=== PATIENT | female | born 1960 | race African-American/Black ===

== ENCOUNTER 2023-11-05 09:20 | Outpatient (CLI) | payer MEDICARE, SELFPAY ==
--- NOTE | ~2023-11-05 | XR_ITS ---
AP view of the pelvis and AP and lateral views of the bilateral hips Clinical history: Pain Findings: No acute fracture or dislocation is seen. Osseous alignment is anatomic. Bilateral hip and SI joint spaces are preserved. Soft tissues are unremarkable. Impression: No significant abnormality is seen. Reviewed, dictated and finalized at location . Impression: No significant abnormality is seen.
[2023-11-05 10:27] LABS: Basophils Absolute Auto 0.1 K/mm3 (0.0-0.1); Basophils Percent Auto 1.6 % (0.2-1.2); Eosinophils Absolute Auto 0.2 K/mm3 (0-0.3); Eosinophils Percent Auto 4.5 % (0-4.4); Hematocrit 37.1 % (37.0-47.0); Hemoglobin 12.1 g/dL (12.0-15.0); Immature Granulocyte Absolute 0.01 K/mm3 (0.00-0.031); Immature Granulocyte Percent A 0.2 % (0-0.5); Lymphocytes Absolute Auto 1.29 K/mm3 (0.9-3.2); Lymphocytes Percent Auto 28.9 % (18.3-44.2); Mean Corpuscular HGB Conc 32.6 g/dl (32-36); Mean Corpuscular Hemoglobin 28.7 pg (26-34); Mean Corpuscular Volume 87.9 fl (80-100); Mean Platelet Volume 9.5 fl (7.4-10.4); Monocytes Absolute Auto 0.4 K/mm3 (0.1-0.6); Monocytes Percent Auto 8.7 % (2.6-8.5); Neutrophils Absolute Auto 2.5 K/mm3 (1.3-6.7); Neutrophils Percent Auto 56.1 % (45.5-73.1); Platelet Count Result 317 k/mm3 (150-375); Red Blood Count 4.22 M/mm3 (4.2-5.4); Red Cell Distribution Width 12.5 % (11.5-14.5); White Blood Count 4.5 K/mm3 (4.5-10.0)
[2023-11-05 10:38] LABS: Alanine Aminotransferase 18 U/L (6-35); Albumin Level 4.9 g/dL (3.5-5.1); Alkaline Phosphatase 70 U/L (38-126); Anion Gap 11 mmol/L (4-12); Aspartate Amino Transferase 20 U/L (14-36); Bilirubin,Total 0.6 mg/dL (0.2-1.3); Blood Urea Nitrogen 13 mg/dL (7-17); Calcium 10.2 mg/dL (8.4-10.2); Carbon Dioxide 22 mmol/L (22-30); Chloride 108 mmol/L (98-107); Cholesterol 165 mg/dL (0-200); Estimated Glomerular Filt Rate > 60; Glucose 154 mg/dL (65-110); HDL Direct 58 mg/dL; Potassium 4.3 mmol/L (3.4-5.0); Sodium 141 mmol/L (137-145); Triglycerides 115 mg/dL (<150)
[2023-11-05 10:50] LABS: LDL Cholesterol Direct 83 mg/dL
[2023-11-05 11:06] LABS: Thyroid Stimulating Hormone 0.607 uIU/mL (0.465-4.680)
[2023-11-05 12:33] LABS: MALB Creatinine Ratio 16.5 mg/g (0-30); Microalbumin Urine Random 24.1 mg/L (0-16.7)
[2023-11-05 12:46] LABS: Hemoglobin A1C 7.1 % (<5.7)
== END 2023-11-05 09:21 | disposition home or self-care (01) ==
PROVIDERS: PCP Internal Medicine; Visit Provider Internal Medicine
DX: M25.552 Pain in left hip (principal); M25.551 Pain in right hip; E53.8 Deficiency of other specified B group vitamins; E78.5 Hyperlipidemia, unspecified; G47.10 Hypersomnia, unspecified; Z13.29 Encounter for screening for other suspected endocrine disorder; I10 Essential (primary) hypertension; E11.9 Type 2 diabetes mellitus without complications
CPT/HCPCS: 36415; 73521; 80053; 80061; 82043; 82607; 83036; 84443; 85025

== ENCOUNTER 2024-03-15 14:40 | Outpatient (CLI) | payer MEDICARE, SELFPAY ==
--- NOTE | ~2024-03-15 | MM_ITS ---
EXAMINATION: MM screening yesica BI w channing HISTORY: Screening TECHNIQUE: Craniocaudal and mediolateral oblique 3-D tomosynthesis images were obtained and synthetic 2-D images were generated. CAD analysis was submitted and interpreted. COMPARISON: No prior studies for comparison. BREAST PARENCHYMAL COMPOSITION: Dense: The breasts are heterogeneously dense, which may obscure small masses FINDINGS: There is no evidence of suspicious mass, calcification, or architectural distortion to sugg est malignancy in either breast. There has been no suspicious interval change. IMPRESSION: 1. No mammographic evidence of malignancy. 2. Recommend routine screening mammography in one year. BI-RADS Category 1: Negative Reviewed, dictated and finalized at location B.
== END 2024-03-15 14:41 | disposition home or self-care (01) ==
PROVIDERS: PCP Internal Medicine; Visit Provider Internal Medicine
DX: Z12.31 Encounter for screening mammogram for malignant neoplasm of breast (principal)
CPT/HCPCS: 77063; 77067

== ENCOUNTER 2024-05-28 09:39 | Outpatient (CLI) | payer MEDICARE, SELFPAY ==
[2024-05-28 10:41] LABS: Alanine Aminotransferase 25 U/L (6-35); Albumin Level 4.6 g/dL (3.5-5.1); Alkaline Phosphatase 71 U/L (38-126); Anion Gap 7 mmol/L (4-12); Aspartate Amino Transferase 25 U/L (14-36); Bilirubin,Total 0.5 mg/dL (0.2-1.3); Blood Urea Nitrogen 9 mg/dL (7-17); Calcium 9.8 mg/dL (8.4-10.2); Carbon Dioxide 24 mmol/L (22-30); Chloride 109 mmol/L (98-107); Cholesterol 161 mg/dL (0-200); Estimated Glomerular Filt Rate > 60; Glucose 139 mg/dL (65-110); HDL Direct 55 mg/dL; Potassium 4.3 mmol/L (3.4-5.0); Sodium 140 mmol/L (137-145); Triglycerides 105 mg/dL (<150)
[2024-05-28 10:54] LABS: LDL Cholesterol Direct 64 mg/dL
[2024-05-28 11:11] LABS: Thyroid Stimulating Hormone 0.775 uIU/mL (0.465-4.680)
[2024-05-28 11:30] LABS: Hemoglobin A1C 7.1 % (<5.7)
--- OUTSIDE RECORDS SUMMARY | 2024-06-04 12:20 | XMS_ITS | Encounter Summary ---
Author Organization [facility] Address [address] [place] [id number] Care Team Providers Care Civil Preparedness Training Officer Name Role Phone Unavailable Primary Care Provider Unavailabl e Encounter Details Date Type Department Care Team (Late st Contact Info) Description 04/25/2020 Lab Requisition [facility] [address] [place] [address] [place] [id number] [address] [address] Social History Tobacco Use Types Packs/Day Years Used Date Smoking Tobacco: Never Assessed Comments Unknown Sex and Gender Information Value Date Recorded Sex Assigned at Not on file Legal Sex Female 11:09 AM EXTRACTION OPERATOR Gender Identity Not on file Sexual Orientation Not on file documented as of this encounter Plan of Treatment Not on file documented as of this encounter Procedures Procedure Name Priority Date/Time Associated Diagnosis Comments SARS-COV-2 PCR [facility] ONLY Routine 04/25/2020 11:15 AM EXTRACTION OPERATOR documented in this encounter Visit Diagnoses Not on filedocumented in this encounter
--- OUTSIDE RECORDS SUMMARY | 2024-06-04 12:20 | XMS_ITS | Encounter Summary ---
Author Organization [facility] Address [address] [place] [address] [place] [address] Care Team Providers Care Fuel Quality Tech Name Role Phone Nai Campbell Flor AGRICULTURAL AIRCRAFT PILOT-SALES ACCOUNT REPRESENTATIVE Primary Care Pro vider Reason for Visit * Radiology Services (Routine) - Closed Specialty Diagnoses / Procedures Referred By Austin campbell Referred To Contact Diagnoses Visit for screening mammogram Procedures MAMMO BILAT SCREENING Adrian Nai MARINA Ray-SALES ACCOUNT REPRESENTATIVE [address] [place] [address] Referral ID Status Reason Start Date Expiration Date Visits Re quested Visits Authorized [id number] Closed 12/26/2020 12/26/2021 1 1 Encounter Details Date Type Department Care Team (Latest Contact Info) Description 12/26/2020 9:08 AM CDT - 12/26/2020 11:59 PM T Hospital Encounter [facility] [address] [place] [address] Adrian Nai FlorMARINA castro-SALES ACCOUNT REPRESENTATIVE [address] [place], [place] [id number] Discharge Disposition: Home or Self Care Social History Tobacco Use Types Packs/Day Years Used Date Smoking Tobacco: Every Day Cigarettes 1 34 Sex and Gender Information Value Date Recorded Sex Assigned at Not on file Gender Identity Not on file Sexual Orientation Not on file documented as of this encounter Plan of Treatment Not on file documented as of this encounter Procedures Procedure Name Priority Date/Time Associated Diagnosis Comments MAMMO BILAT SCREENING Routine 12/26/2020 9:55 AM CDT Visit for screening mammogram documented in this encounter Results * MAMMO BILAT SCREENING (12/26/2020 9:55 AM CDT) Anatomical Region Laterality Modality Breast Bilateral Mammography 12/31/2020 8:43 AM CDT Impressions 12/31/2020 8:48 AM CDT No mammographic evidence of malignancy in either breast. ASSESSMENT: BIRADS Category 2: Benign finding(s). RECOMMENDATION: Bilateral screening mammogram in one year. Thank you for allowing us to participate in the care of your patient. [facility] utilizes [employer] as a reminder system to notify patients of their next recommended mammogram. *Reading Radiologist: Jenni Reddy on 12/31/2020 at 8:48 AM Narrative 12/31/2020 8:48 AM CDT EXAMINATION: Digital screening mammogram. Low-dose full-field digital breast tomosynthesis examination was performed with synthetic 2D images and 3D acquisitions. Computer assisted detection was utilized. DATE: 12/26/2020 9:08 AM PRIOR: Several priors, most recently ??2019 at [facility] now available BREAST PARENCHYMAL DENSITY: The breasts are heterogeneously dense, which may obscure small masses. FINDINGS: No suspicious masses, areas of architectural distortion or microcalcifications are evident on synthetic 2D mammogram or tomosynthesis images. There has been no significant interval change since the prior examination. Nai VALENCIA MAMMO ORD ERABLES documented in this encounter Visit Diagnoses Diagnosis Visit for screening mammogram Other screening mammogram documented in this encounter Care Teams Fuel Quality Tech Relationship Specialty Start Date End Date Nai Campbell APRN-CNP [address] [place], [place] [id number] PCP - General Nurse Practitioner 12/26/20 05/06/22 documented as of this encounter
--- OUTSIDE RECORDS SUMMARY | 2024-06-04 12:20 | XMS_ITS | Patient Health Summary ---
Author Organization [facility] Address [address] [place] [address] Care Team Providers Care Modeling Agent Name Role Phone Nai Oliver PA-C Primary Care Provider [phone]- [phone] Note from [facility],non-owned Affiliates and Associated Physician Practices is amultiple site organization consisting of ambulatory clinics and hospital sitesin [place], [place], [place] and [place]. This disclosure is being madepursuant to the Care Everywhere program and may not contain all information available regarding this patient. Last updated 18.[facility] Social History Tobacco Use Types Packs/Day Years Used Date Smoking Tobacco: Every Day Cigarettes 1 34 Sex and Gender Information Value Date Recorded Sex Assigned at Not on file Gender Identity Not on file Sexual Orientation Not on file Procedures * MAMMO BILAT SCREENING W HASEEB(Performed 05/07/2022) Performed for Encounter for screening mammogram for malignant neoplasm of breast * MAMMO BILAT SCREENING(Performed 12/26/2020) Performed for Visit for screening mammogram * CT LUNG SCREEN LOW DOSE(Performed 12/26/2020) Performed for Personal history of nicotine dependence Results * MAMMO BILAT SCREENING W HASEEB (05/07/2022 10:23 AM SVP RESEARCH AND STRATEGIC ANALYSIS) Anatomical Region Laterality Modality Breast Bilateral Mammography 05/07/2022 1:03 PM [facility] RESEARCH AND STRATEGIC ANALYSIS Impressions 05/07/2022 1:05 PM [facility] RESEARCH AND STRATEGIC ANALYSIS : There is no mammographic evidence of malignancy. OVERALL FINAL ASSESSMENT: BI-RADS Category 1: Negative. Annual screening mammography is recommended. > Interpreting Provider: Karoline Gerard MD on 05/07/2022 1:05 PM Narrative 05/07/2022 1:05 PM [facility]P RESEARCH AND STRATEGIC ANALYSIS EXAMINATION: BILATERAL DIGITAL SCREENING MAMMOGRAM AND BILATERAL BREAST TOMOSYNTHESIS HISTORY: Screening. COMPARISON: Serial examinations dating back to 2019. TECHNIQUE: ??BILATERAL digital breast tomosynthesis (DBT) and synthetic 2D digital mammogram images were obtained (bilateral craniocaudal and mediolateral oblique projections) including computer aided detection (CAD.) BREAST PARENCHYMAL COMPOSITION:Category C: The breasts are heterogeneously dense which may obscure small masses. MAMMOGRAM FINDINGS: There are no suspicious masses, calcifications, or areas of architectural distortion in either breast, and there has been no significant interval change. Nai Oliver PA-C MAMMO ORDERABLES * MAMMO BILAT SCREENING (12/26/2020 9:55 AM CDT) Anatomical Region Laterality Modality Breast Bilateral Mammography 12/31/2020 8:43 AM CDT Impressions 12/31/2020 8:48 AM CDT No mammographic evidence of malignancy in either breast. ASSESSMENT: BIRADS Category 2: Benign finding(s). RECOMMENDATION: Bilateral screening mammogram in one year. Thank you for allowing us to participate in the care of your patient. [facility] Breast Care utilizes [facility] as a reminder system to notify patients of their next recommended mammogram. *Reading Radiologist: Jenni Reddy on 12/31/2020 at 8:48 AM Narrative 12/31/2020 8:48 AM CDT EXAMINATION: Digital screening mammogram. Low-dose full-field digital breast tomosynthesis examination was performed with synthetic 2D images and 3D acquisitions. Computer assisted detection was utilized. DATE: 12/26/2020 9:08 AM PRIOR: Several priors, most recently ??2019 at [facility] now available BREAST PARENCHYMAL DENSITY: The breasts are heterogeneously dense, which may obscure small masses. FINDINGS: No suspicious masses, areas of architectural distortion or microcalcifications are evident on synthetic 2D mammogram or tomosynthesis images. There has been no significant interval change since the prior examination. Nai Campbell CLAIM TAKER-PHOTO TECHNOLOGIST MAMMO ORD ERABLES * CT LUNG SCREEN LOW DOSE (12/26/2020 8:10 AM CDT) Anatomical Region Laterality Modality Chest Computed Tomogra phy 12/26/2020 9:35 AM CDT Impressions 12/26/2020 9:37 AM CDT No pulmonary nodules. Lung RADS category 1, negative Continue annual screening with low-dose CT in 12 months. *Reading Radiologist: Yifan Brandt on 12/26/2020 at 9:37 AM Narrative 12/26/2020 9:[address] Lung Cancer Screening INDICATION: ??34 pack year smoking history TECHNIQUE: Thin section helical images were obtained through the chest using low-dose protocol. Sagittal and coronal reconstructions were performed. FINDINGS: No old studies are available for comparison purposes. There are degenerative changes of the spine. ?? The lungs are clear of infiltrate. ?? There is no pleural effusion. ?? There is no pneumothorax. There are no suspicious pulmonary nodules. ?? The central airways are normal in caliber. The thyroid gland is unremarkable. ?? There is no axillary adenopathy. There is no mediastinal adenopathy. ?? There is no hilar adenopathy. The aorta is normal in caliber with no evidence for aneurysm or dissection. ?? The heart is normal in size. Coronary artery calcification is noted. Procedure Note Yifan Brandt MD - 12/26/2020 CT Lung Cancer Screening INDICATION: 34 pack year smoking history TECHNIQUE: Thin section helical images were obtained through the chest using low-dose protocol. Sagittal and coronal reconstructions were performed. FINDINGS: No old studies are available for comparison purposes. There are degenerative changes of the spine. The lungs are clear of infiltrate. There is no pleural effusion. There is no pneumothorax. There are no suspicious pulmonary nodules. The central airways are normal in caliber. The thyroid gland is unremarkable. There is no axillary adenopathy. There is no mediastinal adenopathy. There is no hilar adenopathy. The aorta is normal in caliber with no evidence for aneurysm or dissection. The heart is normal in size. Coronary artery calcification is noted. IMPRESSION No pulmonary nodules. Lung RADS category 1, negative Continue annual screening with low-dose CT in 12 months. *Reading Radiologist: Yifan Brandt on 12/26/2020 at 9:37 AM Nai [place] CLAIM TAKER-PHOTO TECHNOLOGIST CT ORDERA BLES Care Teams Modeling Agent Relationship Specialty Start Date End Date Nai Oliver PA-C [address] [place] [phone] PCP - General Physician Executive Talent Acquisition Consultant 05/07/22
--- OUTSIDE RECORDS SUMMARY | 2024-06-04 12:20 | XMS_ITS | Encounter Summary ---
Author Organization [facility] Address [address] [place] [address] Care Team Providers Care Metrology Technician Name Role Phone Unavailable Primary Care Provider Unavailabl e Encounter Details Date Type Department Care Team (Late st Contact Info) Description 04/25/2020 12:00 PM CAPACITOR REPAIRER Rapid Evaluation [place] [facility] Public [facility] Community Testing [facility] [address] [place] [address] Social History Tobacco Use Types Packs/Day Years Used Date Smoking Tobacco: Never Assessed Comments Unknown Sex and Gender Information Value Date Recorded Sex Assigned at Not on file Legal Sex Female 11:09 AM CAPACITOR REPAIRER Gender Identity Not on file Sexual Orientation Not on file documented as of this encounter Plan of Treatment Not on file documented as of this encounter Visit Diagnoses Not on filedocumented in this encounter
--- OUTSIDE RECORDS SUMMARY | 2024-06-04 12:20 | XMS_ITS | Clinical Summary ---
Author Organization [facility] Address [address] [place] [address] Care Team Providers Care Bail Bondsman Name Role Phone Nai Oliver PA-C Primary Care Provider [phone]- [phone] Source Comments [facility],non-[facility] Affiliates and Associated Physician Practices is amultiple site organization consisting of ambulatory clinics and hospital sitesin [place], [place], [place] and [place]. This disclosure is being madepursuant to the Care Everywhere program and may not contain all information available regarding this patient. Last updated 18.[facility] [employer] Social History Tobacco Use Types Packs/Day Years Used Date Smoking Tobacco: Every Day Cigarettes 1 34 Sex and Gender Information Value Date Recorded Sex Assigned at Not on file Gender Identity Not on file Sexual Orientation Not on file Plan of Treatment Health Maintenance Due Date Last Done Comments BONE DENSITY TESTING 1960 COLOGUARD (AGES 45-75) - COLON CA SCREENING 1958 COLON MONITORING 1958 COLONOSCOPY - COLON CA SCREENING 1958 CT COLONOGRAPHY - COLON CA SCREENING 1958 Colorectal Cancer Screening 1958 FIT - COLON CA SCREENING 1958 FLEX SIG - COLON CA SCREENING 1958 LIPID TESTING 1958 PNEUMOCOCCAL VACCINE 65+ (1 of 2 - PCV) 1964 HEPATITIS C SCREENING 04/10/1976 DTAP/TDAP/TD VACCINES (1 - Tdap) 1977 ZOSTER VACCINE (1 of 2) 2008 LUNG CANCER SCREENING 12/26/2021 12/26/2020 DEPRESSION SCREENING 06/08/2023 COVID-19 VACCINE ( season) 2024 05/20/2021, 09/21/2020, 08/21/2020 INFLUENZA VACCINE (#1) 2024 , 04/12/2019, 04/20/2014, Additional history exists MAMMOGRAM 05/07/2024 05/07/2022, 12/26/2020 Respiratory Syncytial Virus (RSV) Vaccine Pt: or over 60 yrs (1 - 1-dose 75+ series) 2033 HEPATITIS B VACCINE Aged Out No longe r eligible based on patient's age to complete this topic HIB VACCINE Aged Out No longer eligi ble based on patient's age to complete this topic HPV VACCINE Aged Out No longer eligi ble based on patient's age to complete this topic MENINGOCOCCAL VACCINE Aged Out No raman darrell eligible based on patient's age to complete this topic Procedures Procedure Name Priority Date/Time Associated Diagnosis Comments MAMMO BILAT SCREENING W HASEEB Routine 05/07/2022 10:23 AM IBM WEBSPHERE COMMERCE DEVELOPER Encounter for screening mammogram for malignant neoplasm of breast CT LUNG SCREEN LOW DOSE Routine 12/26/2020 8:10 AM CDT Personal history of nicotine dependence from Last 3 Months or Most Recently Relevant to Health Maintenance Results * MAMMO BILAT SCREENING W HASEEB (05/07/2022 10:23 AM [employer] WEBSPHERE COMMERCE DEVELOPER) Anatomical Region Laterality Modality Breast Bilateral Mammography 05/07/2022 1:03 PM [employer] WEBSPHERE COMMERCE DEVELOPER Impressions 05/07/2022 1:05 PM [employer] WEBSPHERE COMMERCE DEVELOPER : There is no mammographic evidence of malignancy. OVERALL FINAL ASSESSMENT: BI-RADS Category 1: Negative. Annual screening mammography is recommended. > Interpreting Provider: Karoline Gerard MD on 05/07/2022 1:05 PM Narrative 05/07/2022 1:05 PM [employer] WEBSPHERE COMMERCE DEVELOPER EXAMINATION: BILATERAL DIGITAL SCREENING MAMMOGRAM AND BILATERAL BREAST TOMOSYNTHESIS HISTORY: Screening. COMPARISON: Serial examinations dating back to 2018. TECHNIQUE: ??BILATERAL digital breast tomosynthesis (DBT) and [...] change. Nai Oliver PA-C MAMMO ORDERABLES * CT LUNG SCREEN LOW DOSE (12/26/2020 [...] Yifan Brandt on 12/26/2020 at 9:37 AM [facility] STEAM PRESSER-INVESTIGATION CLERK CT ORDERA BLES from Last 3 Months or Most Recently Relevant to Health Maintenance Care Teams Bail Bondsman Relationship Specialty Start Date End Date Nai Oliver PA-C [address] [place] [address] PCP - General Physician Gravure Press Set Up Operator 05/07/22
--- OUTSIDE RECORDS SUMMARY | 2024-06-04 12:20 | XMS_ITS | Referral Summary ---
Author Organization [facility] Address [address] [place] [address] Care Team Providers Care Placement Assistant Name Role Phone Nai Oliver PA-C Primary Care Provider +1- [phone] Source Comments [facility],non-[facility] Affiliates and Associated Physician Practices is amultiple site organization consisting of ambulatory clinics and hospital sitesin [place], [place], [place] and [place]. This disclosure is being madepursuant to the Care Everywhere program and may not contain all information available regarding this patient. Last updated 18.[facility] [employer] Social History Tobacco Use Types Packs/Day Years Used Date Smoking Tobacco: Every Day Cigarettes 1 34 Sex and Gender Information Value Date Recorded Sex Assigned at Not on file Gender Identity Not on file Sexual Orientation Not on file Plan of Treatment Not on file Procedures Procedure Name Priority Date/Time Associated Diagnosis Comments MAMMO BILAT SCREENING W HASEEB Routine 05/07/2022 10:23 AM JEWEL SAWYER Encounter for screening mammogram for malignant neoplasm of breast CT LUNG SCREEN LOW DOSE Routine 12/26/2020 8:10 AM CDT Personal history of nicotine dependence from Last 3 Months or Most Recently Relevant to Health Maintenance Results * MAMMO BILAT SCREENING W HASEEB (05/07/2022 10:23 AM JEWEL SAWYER) Anatomical Region Laterality Modality Breast Bilateral Mammography 05/07/2022 1:03 PM JEWEL SAWYER Impressions 05/07/2022 1:05 PM JEWEL SAWYER : There is no mammographic evidence of malignancy. OVERALL FINAL ASSESSMENT: BI-RADS Category 1: Negative. Annual screening mammography is recommended. > Interpreting Provider: Karoline Gerard MD on 05/07/2022 1:05 PM Narrative 05/07/2022 1:05 PM JEWEL SAWYER EXAMINATION: BILATERAL DIGITAL SCREENING MAMMOGRAM AND BILATERAL [...] Yifan Brandt on 12/26/2020 at 9:37 AM [facility] ELECTRICAL ELECTRONICS ENGINEER-SENIOR MEDICAL BILLING SPECIALIST CT ORDERA BLES from Last 3 Months or Most Recently Relevant to Health Maintenance Care Teams Placement Assistant Relationship Specialty Start Date End Date Nai Oliver PA-C [address] [place] [phone] PCP - General Physician Reheater 05/07/22
--- OUTSIDE RECORDS SUMMARY | 2024-06-04 12:20 | XMS_ITS | Encounter Summary ---
Author Organization [facility] Address [address] [address] [place] [address] Care Team Providers Care Color Control Operator Name Role Phone Nai Campbell Flor VALENCIA Primary Care Pro vider Encounter Details Date Type Department Care Team (Latest Contact Info) Description 04/10/2022 Travel Social History Tobacco Use Types Packs/Day Years Used Date Smoking Tobacco: Every Day Cigarettes 1 34 Sex and Gender Information Value Date Recorded Sex Assigned at Not on file Gender Identity Not on file Sexual Orientation Not on file COVID-19 Exposure Response Date Recorded In the last 10 days, have yo u been in contact with someone who was confirmed or suspected to have Coronavirus/COVID-19? No / Unsure 04/10/2022 11:10 AM CDT documented as of this encounter Plan of Treatment Not on file documented as of this encounter Visit Diagnoses Not on filedocumented in this encounter Care Teams Color Control Operator Relationship Specialty Start Date End Date Nai Campbell ERIK Ray [address] [place] [address] PCP - General Nurse Practitioner 12/26/20 05/06/22 documented as of this encounter
--- OUTSIDE RECORDS SUMMARY | 2024-06-04 12:20 | XMS_ITS | Continuity of Care Document ---
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 her kidney or liver due to Ibuprofen and drinking heavily for a 3 year span. She would drink a 30 pack in 2 days.Patient has denies ever taking B/P medication she says her B/P was borderline. Diagnosed with depression, was on Zoloft but patient didn't like how it made her feel.Patient says when she wipes there is blood from vaginal area. Patient has a hysterectomy 20/25 years ago, Patient is not sexually active for the last 2 years.Patient had a colonoscopy in 2018-normal follow up in 10 years 2028Mammogram due- Functional Status Date Functional Assessmen t No Information Instructions Date Instruction Additional Infor leeann 9. Discussed appropr iate shoe gear for patient's foot type and to reduce rubbing on bunions - Continue wide width shoes daily with fabric, mesh or real leather uppers Related to Hallux valgus (acquired), left foot 5. Pairing of kerato derma/porokeratoma bilateral feet using a #15 blade without incident. Consent signed.6. Recommend patient use pumice stone on calluses after showering7. E-prescription for Amlactin 12 % cream to be applied to bottoms of feet daily; let dry before putting on socks - should slow callus re-growth8. RTC 3-6 months for f/u Related to Callus 1. Comprehensive his tory and physical examination2. Discussed assessment in detail with patient3. Comprehensive diabetic foot exam - reviewed risks of DM including but not limited to: neuropathy, PAD, infection, ulceration, foot deformity.4. Gave patient education about diabetic home foot care Related to Type 2 diabetes mellitus with hyperglycemia Prescribed activity/exercise edu cation Related to Body mass index [BMI] 30.0-30.9, adult Home exercises (leanne y, 3 sets of 10 + repetitions).1. Seated knee extensions2. Standing hip abductions3. Side glidesYellow bandMindful breathing - goal is 20 minutesPositive habit formation: pick the same time each day and same daily activity to stick these exercises to (e.g. brushing teeth, eating lunch).Biofreeze as neededIcing the hips before bed, ice cubes in a bag, 20 minutes at a time Related to Low back pain, unspecified Home exercises (leanne y, 3 sets of 10 + repetitions).1. Seated knee extensions2. standing hip abductionsYellow bandMindful breathing - goal is 20 minutesPositive habit formation: pick the same time each day and same daily activity to stick these exercises to (e.g. brushing teeth, eating lunch).Biofreeze as neededIcing the hips before bed, ice cubes in a bag, 20 minutes at a time Related to Low back pain, unspecified Home exercises (leanne y, 3 sets of 10 + repetitions).1. Seated knee extensions2. Seated clam shellYellow bandMindful breathing - goal is 20 minutesPositive habit formation: pick the same time each day and same daily activity to stick these exercises to (e.g. brushing teeth, eating lunch).Biofreeze as neededIcing the hips before bed, ice cubes in a bag, 20 minutes at a time Related to Low back pain, unspecified Home exercises (leanne y, 3 sets of 10 + repetitions).1. Seated knee extensions2. Seated clam shellYellow bandMindful breathing - goal is 20 minutesPositive habit formation: pick the same time each day and same daily activity to stick these exercises to (e.g. brushing teeth, eating lunch).Biofreeze as neededIcing the hips before bed, ice cubes in a bag, 20 minutes at a time Related to Low back pain, unspecified Continue rosuvastatin 10mg daily Related to Hyperlipidemia Continue amlodipine 10mgINCREASE losartan from 50mg to 100mg daily Related to Essential (primary) hypertension Schedule diabetic ey e examSchedule sleep studySchedule chiropractor and xray appointmentsSchedule podiatryFollow up in April when you have Medicare for your Welcome to Medicare Visit Related to Encounter for adult annual physical exam with abnormal finding Prescribed activity/exercise edu cation Related to Body mass index [BMI] 30.0-30.9, adult Schedule diabetic ey e examComplete labsContinue metformin 500mg twice dailyFollow up in 6 months, 11/06/2022 Related to Type 2 diabetes mellitus with unspecified complications Continue rosuvastatin 10mg daily Related to Hyperlipidemia Blood pressure goal: less than 140/90, ideally 120/80Take medication as prescribedDASH dietStress, alcohol, salt can increase your blood pressureContact the office if your blood pressure is consistently great than 140/90 Related to Essential (primary) hypertension Giving encouragement to exercise Related to Body mass index [BMI] 30.0-30.9, adult Increase rosuvastatin 5mg to 10m g daily Related to Hyperlipidemia Continue amlodipine 10mg dailyStart lisinopril 10mg daily Related to Essential (primary) hypertension Follow up in 6-8 wee ks for diabetes/blood pressure Related to Encounter for gynecological examination (general) (routine) without abnormal findings Giving encouragement to exercise Related to Body mass index [BMI] 30.0-30.9, adult Schedule pap smear a ppointmentSchedule WWE for 4 weeks Related to Encounter for adult annual physical exam w/ abnormal finding Continue baclofen as needed Rela maggi to Osteoarthritis Start rosuvastatin 5mg Related t o Hyperlipidemia a1c: 6.5! Continue w ith metformin 500mg twice daily Related to Type 2 diabetes mellitus with unspecified complications 30-60 minutes of exe rcise dailyStay away from sugary drinks: soda, juice, Gatorade, sweet tea, Carmelo-aid, lemonade, etc.Diet high in fresh/frozen fruits/vegetables, lean meats like chicken, fishMinimal deep fried/greasy foods, minimal fast food Related to Obesity Blood pressure goal: less than 140/90, ideally 120/80Take medication as prescribedDASH dietStress, alcohol, salt can increase your blood pressureContact the office if your blood pressure is consistently great than 140/90 Related to Essential (primary) hypertension Initiate Immodium AK N at this time - contact clinic if no improvement Related to Diarrhea Giving encouragement to exercise Related to Body mass index [BMI] 30.0-30.9, adult Dietary needs education Related to Body mass index [BMI] 30.0-30.9, adult Follow up in 6 month s or earlier if needed. Related to Essential (primary) hypertension Get labs done on Mar or later.Will schedule next appointment based on lab results. Related to Type 2 diabetes mellitus with unspecified complications Prescribed activity/exercise edu cation Related to Body mass index [BMI]30.0-30.9, adult Follow up in 6-8 weeks Related t o Encounter for adult annual physical exam w/ abnormal finding reduce sodium intake Related to Essential (primary) hypertension PHQ-9 (7) mild Related to Persi stent depression Assessments Type Assessment Date No Information Patient Care Teams Name Effective Dates (start - stop) Status Members No Information
--- OUTSIDE RECORDS SUMMARY | 2024-06-04 12:20 | XMS_ITS | Encounter Summary ---
Author Organization [facility] Address [address] [place], [place] [address]Jay[place] [address] Care Team Providers Care Public Bath Attendant Name Role Phone Nai Oliver PA-C Primary Care Provider [phone] Reason for Referral * Radiology Services (Routine) - Closed Specialty Diagnoses / Procedures Referred By Austin campbell Referred To Contact Mammography Diagnoses Encounter for screening mammogram for malignant neoplasm of breast Procedures MAMMO BILAT SCREENING W Nai Tuttle PA-C [address] [place] [address] [facility] [address] [place] [address] Referral ID Status Reason Start Date Expiration Date Visits Re quested Visits Authorized [id number] Closed 11/15/2021 11/15/2022 1 1 NET STRINGER Reason for Visit * Radiology Services (Routine) - Closed Specialty Diagnoses / Procedures Referred By Austin campbell Referred To Contact Mammography Diagnoses Encounter for screening mammogram for malignant neoplasm of breast Procedures MAMMO BILAT SCREENING W Nai Tuttle PA-C [address] [place] [address] [facility] [address] [place] [address] Referral ID Status Reason Start Date Expiration Date Visits Re quested Visits Authorized [id number] Closed 11/15/2021 11/15/2022 1 1 Encounter Details Date Type Department Care Team (Latest Contact Info) Description 05/07/2022 10:04 AM GILL NET STRINGER - 05/07/2022 11:59 PM GILL NET STRINGER Hospital Encounter [facility] [address] [place] [address] [facility] Flor, [employer] [address] [place] [address] Discharge Disposition: Home or Self Care Social [...] SCREENING W HASEEB Routine 05/07/2022 10:23 AM GILL NET STRINGER Encounter for screening mammogram for malignant neoplasm of breast documented in this encounter Results * MAMMO BILAT SCREENING W HASEEB (05/07/2022 10:23 AM GILL NET STRINGER) Anatomical Region Laterality Modality Breast Bilateral Mammography 05/07/2022 1:03 PM GILL NET STRINGER Impressions 05/07/2022 1:05 PM GILL NET STRINGER : There is no mammographic evidence of malignancy. OVERALL FINAL ASSESSMENT: BI-RADS Category 1: Negative. Annual screening mammography is recommended. > Interpreting Provider: Karoline Gerard MD on 05/07/2022 1:05 PM Narrative 05/07/2022 1:05 PM GILL NET STRINGER EXAMINATION: BILATERAL DIGITAL SCREENING MAMMOGRAM AND BILATERAL [...] interval change. Nai Oliver PA-C MAMMO ORDERABLES documented in this encounter Visit Diagnoses Diagnosis Encounter for screening mammogram for malignant neoplasm of breast Other screening mammogram documented in this encounter Care Teams Public Bath Attendant Relationship Specialty Start Date End Date Nai Oliver PA-C [address] [place] [address] PCP - General Physician Department Of Sociology Chair 05/07/22 documented as of this encounter
--- OUTSIDE RECORDS SUMMARY | 2024-06-04 12:20 | XMS_ITS | Clinical Summary ---
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 Gender Identity Not on file Sexual Orientation Not on file Plan of Treatment Health Maintenance Due Date Last Done Comments DEXA Bone Density 1960 Hepatitis C Virus (HCV) Screening 1960 TdaP Immunization 1958 Pap Smear 1979 Cervical Cancer Screening (CCS) 1988 HPV/Cotest 1988 Colonoscopy 2003 Colorectal Cancer Screening 2003 Cologuard 2008 Immunochemical Fecal Occult Blood 2008 Mammogram 2008 Zoster Immunization (1 of 2) 2008 SARS-COV-2 Immunization ( - 2022-24 season) 2023 Pneumococcal Immunization (5 0+ years) (1 of 1 - PCV) 2023 Influenza Immunization (Seas on Ended) 2024 03/21/2020, 04/12/2019, 04/20/2014 Hepatitis B Immunization Aged Out No longer eligible based on patient's age to complete this topic Meningococcal Immunization (ACWY) Aged Out No longer eligible b ased on patient's age to complete this topic Rotavirus Immunization Aged Out No lo nger eligible based on patient's age to complete this topic
--- OUTSIDE RECORDS SUMMARY | 2024-06-04 12:20 | XMS_ITS | Encounter Summary ---
Author Organization [facility] Address [address] [place] [address] Care Team Providers Care Mathematician Research Name Role Phone Nai Olvier PA-C Primary Care Provider [phone]- [phone] Reason for Visit * Reason Onset Date Comments Establish Care 12/24/2022 Encounter Details Date Type Department Care Team (Late st Contact Info) Description 12/24/2022 Telephone [facility] - Pulmonology [address] [place] [address] Sarabjit Joyner MD [address] [place] [address] Establish Care Social History Tobacco Use Types Packs/Day Years Used Date Smoking Tobacco: Every Day Cigarettes 1 34 Sex and Gender Information Value Date Recorded Sex Assigned at Not on file Gender Identity Not on file Sexual Orientation Not on file documented as of this encounter Miscellaneous Notes * Telephone Encounter - Benedicto Rosario - 12/24/2022 11:53 AM CDT The patient is referred to Dr Joyner by Dr Oliver for snoring and somnolence. She has [facility] Ins. Dr Oliver Office Notes scanned into media. Called to schedule, no answer, LMOVM to call back. documented in this encounter Plan of Treatment Not on file documented as of this encounter Visit Diagnoses Not on filedocumented in this encounter Care Teams Mathematician Research Relationship Specialty Start Date End Date Nai Oliver PA-C [address] [place] [address] PCP - General Physician Fishing Hand 05/07/22 documented as of this encounter
--- OUTSIDE RECORDS SUMMARY | 2024-06-04 12:20 | XMS_ITS | Encounter Summary ---
Author Organization [facility] Address [address] [place], [place] [address] [address] Care Team Providers Care Manager Clinic Name Role Phone Nai Campbell Primary Care Pro vider Reason for Referral * Radiology Services (Routine) - Closed Specialty Diagnoses / Procedures Referred By Austin campbell Referred To Contact Diagnoses Personal history of nicotine dependence Procedures CT LUNG SCREEN LOW DOSE Nai Campbell APRN-CNP [address] [place] [address] [address] Referral ID Status Reason Start Date Expiration Date Visits Re quested Visits Authorized [id number] Closed 12/17/2020 03/14/2021 1 1 Reason for Visit * Radiology Services (Routine) - Closed Specialty Diagnoses / Procedures Referred By Austin campbell Referred To Contact Diagnoses Personal history of nicotine dependence Procedures CT LUNG SCREEN LOW DOSE Nai Campbell APRN-CNP [address] [place] [address] [address] Referral ID Status Reason Start Date Expiration Date Visits Re quested Visits Authorized [id number] Closed 12/17/2020 03/14/2021 1 1 Encounter Details Date Type Department Care Team (Latest Contact Info) Description 12/26/2020 8:00 AM CDT - 12/26/2020 9:07 AM CDT Hospital Encounter [facility] Health Imaging Services - CT Scan [address], [address] [place] [address] Adrian Nai Flor, BANKING OFFICERDIGITAL MEDIA PRODUCER [address] [place] [address] Discharge Disposition: Home or Self Care Social [...] Procedure Name Priority Date/Time Associated Diagnosis Comments CT LUNG SCREEN LOW DOSE Routine 12/26/2020 8:10 AM CDT Personal history of nicotine dependence documented in this encounter Results * CT LUNG SCREEN LOW DOSE (12/26/2020 [...] Brandt on 12/26/2020 at 9:37 AM Nai Campbell APRN-DIGITAL MEDIA PRODUCER CT ORDERA BLES documented in this encounter Visit Diagnoses Diagnosis Personal history of nicotine dependence Personal history of tobacco use, presenting hazards to health documented in this encounter Care Teams Manager Clinic Relationship Specialty Start Date End Date Nai Campbell APRN-CNP [address] [place] [address] PCP - General Nurse Practitioner 12/26/20 05/06/22 documented as of this encounter
== END 2024-05-28 09:40 | disposition home or self-care (01) ==
PROVIDERS: PCP Internal Medicine; Visit Provider Internal Medicine
DX: E78.5 Hyperlipidemia, unspecified (principal); I10 Essential (primary) hypertension; E11.9 Type 2 diabetes mellitus without complications; R53.83 Other fatigue
CPT/HCPCS: 36415; 80053; 80061; 83036; 84443

== ENCOUNTER 2024-12-06 08:37 | Outpatient (CLI) | payer MEDICARE, SELFPAY ==
--- OUTSIDE RECORDS SUMMARY | 2024-12-06 08:41 | XMS_ITS | Clinical Summary ---
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 Gender Identity Not on file Sexual Orientation Not on file Plan of Treatment Health Maintenance Due Date Last Done Comments DEXA Bone Density 1958 Hepatitis C Virus (HCV) Screening 1958 TdaP Immunization 1958 Pap Smear 1979 Cervical Cancer Screening (CCS) 1988 HPV/Cotest 1988 Colonoscopy 2003 Colorectal Cancer Screening 2003 Cologuard 2008 Immunochemical Fecal Occult Blood 2008 Mammogram 2008 Pneumococcal Immunization (50+ years) (1 of 1 - PCV) 2008 Zoster Immunization (1 of 2) 2008 Influenza Immunization (#1) 02/07/202403/08, 04/12/2019, 04/24/2014, Additional history exists SARS-COV-2 Immunization (2023- season) 2024 Respiratory Syncytial Virus (RSV) Immunization (Adult) (1 - 1-dose 75+ series) 2033 Hepatitis B Immunization Aged Out No longer eligible based on patient's age to complete this topic Meningococcal Immunization (ACWY) Aged Out No longer eligible based on patient's age to complete this topic Rotavirus Immunization Aged Out No lo nger eligible based on patient's age to complete this topic
--- OUTSIDE RECORDS SUMMARY | 2024-12-06 08:41 | XMS_ITS | Continuity of Care Document ---
Author Organization [facility] Address [address] [place] [phone] Phone Care Team Providers Care Sort Manager Name Role Phone Foster ISBELL, Nahed Unavailable [...] COMPREHENSIVE PREVENTIVE MED RE E/M; ESTABLISHED PATIENT; 40 OFFICE OUTPT EST 25 MIN HEMOGLOBIN; GLYCOSYLATED (A1C) 23 Voided Encounter OFFICE OUTPT EST 25 MIN Alcohol and/or drug screening HEMOGLOBIN; GLYCOSYLATED (A1C) 22 SARSCOV2 VAC BVL 30MCG/0,3ML Immun admin-adult or WO counseling - fir st vaccine/toxoid Fluarix CYTP C/V FLU AUTO THIN MNL PHYS 022 PERIODIC COMPREHENSIVE PREVENTIVE MED RE E/M; ESTABLISHED PATIENT; 4064 OFFICE/OUTPATIENT VISIT, EST IMMUN ADMIN SARSCOV2 BVL 30MCG/.3ML ROMERO TER Immun admin-adult or [place] counseling[place] [address] Pneumococcal polysaccharide vaccine, 23- valent (Pneumo-Vax 23) to age 2+ Immun admin-adult or WO counseling - fir st vaccine/toxoid TDAP VACCINE 7 YR + IM PERIODIC COMPREHENSIVE PREVENTIVE MED RE E/M; ESTABLISHED PATIENT; 40-64 OFFICE OUTPT EST 40 MIN HEMOGLOBIN; GLYCOSYLATED (A1C) OFFICE/OUTPATIENT VISIT, EST HEMOGLOBIN; GLYCOSYLATED (A1C) 21 [...] Diagnoses Date Provider Providers Copied on Encounter [facility], [address], [place], [place], [id number] , tel: [phone] [facility] No Information 4 Despotovic Nahed. [address], [place], [place], [address], . tel:[phone] [facility], [address], [place], [place], [address] , tel: [phone] [facility] No Information 3 No Information OFFICE/OUTPATI ENT VISIT, NEW [facility], [address], [place], [place], [address] , tel: [phone] [facility] foot exam (chief complaint) Body mass index (BMI) 30.0-30.9, adultType 2 diabetes mellitus with hyperglycemia CallusHallux valgus (acquired), left footHallux valgus (acquired), right foot Sep-2 3 Aiyana Zamora. [address], [place], [place], [address], . tel:[phone] Referring Provider: Sera Bronson, [address], [place], [address] . tel:[phone] [facility], [address], [place], [place], [address] , tel: [phone] [facility] No Information 3 No Information [facility], [address], [place], [place], [address] , tel: [phone] [facility] No Information 3 No Information [facility], [address], [place], [place], [address] , [place] tel: [phone] [facility] pain - low back (chief complaint) Low back pain, unspecifiedSe gmental and somatic dysfunction of lumbar regionOther spondylosis, lumbar region 3 Elizabeth Hackett. [address], [place], [place], [address], . tel:[phone] Referring Provider: Roxann Johnson, [address], [place], [address] . tel:[phone] [facility], [address], [place], [place], [address] , tel: [phone] [facility] pain- back and hip (chief complaint) Low back pain, unspecifiedSe gmental and somatic dysfunction of lumbar regionOther spondylosis, lumbar region 3 Elizabeth Hackett. [address], [place], [place], [address], . tel:[phone] Referring Provider: Roxann Johnson, [address], [place], [address] . tel:[phone] [facility], [address], [place], [place], [address] , tel: [phone] [facility] pain - back and hip (chief complaint) Low back pain, unspecifiedSe gmental and somatic dysfunction of lumbar regionOther spondylosis, lumbar region 3 No Information OFFICE/OUTPATI ENT VISIT, NEW [facility], [address], [place], [place], [address] , [place] tel: [phone] [facility] pain - back (chief complaint) Low back pain, unspecifiedTr ochanteric bursitis, unspecified hipSegmental and somatic dysfunction of lumbar region 3 No Information [facility], [address], [place], [place], [address] , [place] tel: [phone] [facility] No Information 3 No Information PERIODIC COMPREHENSIVE PREVENTIVE MED REE/M; ESTABLISHED PATIENT; [facility], [address], [place], [place], [address] , [place] tel: [phone] [facility] CPE (chief complaint)dm/ htn/hld [...] Information [facility], [address], [place], [place], [address] , [place] tel: [phone] [facility] No Information 2 No Information OFFICE OUTPT EST 25 MIN [facility], [address], [place], [place], [address] , [place] tel: [phone] [facility] Follow Up of dm/htn/hld (chief complaint)emily k pain (chief complaint) Type 2 diabetes mellitus with unspecified complications Essential (primary) hypertensionH yperlipidemia Body mass index (BMI) 30.0-30.9, adultBack painEncounter for screening for other disorder 2 No Information PERIODIC COMPREHENSIVE PREVENTIVE MED REE/M; ESTABLISHED PATIENT; [facility], [address], [place], [place], [address] , [place] tel:[phone] [facility] WWE (chief complaint)Fol low Up of dm/htn/hld (chief complaint) Encounter for gynecological examination (general) (routine) without abnormal findingsBody mass index (BMI) 30.0-30.9, adultType 2 diabetes mellitus with unspecified complications Essential (primary) hypertensionH yperlipidemia Encounter for screening mammogram for cancer of breast 2 No Information PERIODIC COMPREHENSIVE PREVENTIVE MED REE/M; ESTABLISHED PATIENT; 40-64 [facility], [address], [place], [place], [address] , [place] tel: [phone] [facility] CPE (chief complaint)dm/ htn/hld [...] EST [facility], [address], [place], [place], [address] , tel: [phone] [facility] hypertension (chief complaint)monique betes (chief complaint)fol low up (chief complaint) Body mass index (BMI) 30.0-30.9, adultEssentia l (primary) hypertensionT ype 2 diabetes mellitus with unspecified complications Back pain Feb- 1 No Information [facility], [address], [place], [place], [address] , [place] tel: [phone] [facility] No Information 1 No Information [facility], [address], [place], [place], [address] , [place] tel: [phone] [facility] No Information 1 Charlene Patel. [address], [place], [place], [address], [place]. [phone] OFFICE/OUTPATI ENT VISIT, NEW [facility], [address], [place], [place], [address] , [place] tel: [phone] [facility] establish care (chief complaint)dep ression [...] Agency Payers Payer name Insurance type Covered democrat ID Authoriza tion(s) Ambetter 16 [id number] Ambetter 16 [id number] [employer] 16 [id number] Social History Type Description Quantity Date Captured Comments Sex Female Smoking Status No Information Sexual Orientation Straight or heterosexual Dec Gender Identity Female Chief Complaint And Reason For Visit No Information Reason For Referral Reason For Referral No Information Plan Of Treatment Date Type Action Status Referral Referred To: [facility] Sleep Study [address] [place], [phone] Ordered: Referrals: Sleep Studies. [facility] Sleep Study. Evaluate and treat Appointment date/timeframe: 03/31/2023 ordered Referral Referred To: [facility] Ordered: Referrals: Mammography Screening and Diagnostic. [facility]. Diagnostic testing Appointment date/timeframe: 05/07/2022 ordered Referral Referred To: [facility] Ordered: Referrals: Radiology. [facility]. Location: [place], [place]. Diagnostic testing Appointment date/timeframe: 2 Months ordered Referral Referred To: [facility] Ordered: Referrals: Mammography Screening and Diagnostic. [facility]. Location: [place], [place] Appointment date/timeframe: 11/26/2021 ordered Referral Referred To: Amanda Arringtonangela SÁNCHEZ [address] [place], [place], [phone] Ordered: Referrals: [facility]. Amanda Chang HAY RAKE OPERATOR ordered Referral Referred To: [facility] [address] [place], [phone] Ordered: Referrals: Radiology. [facility]. Location: [place]. Diagnostic testing ordered Referral Referred To: [place] Ordered: Referrals: Mammography Screening and Diagnostic. [place]. Location: [place]. Diagnostic testing ordered Patient Education Diabetes Foot Health: Care Instructions completed Patient Education Back Strain: Care Instr uctions completed Patient Education Therapeutic Ball: Back Exercises completed Future Order: Radiology Order Hi p Bilateral, 2 views ([id number]), Ordered on: Ordered Nutrition Recommendation Nutrition therap [...] INITIAL DATE OF SERVICE: 12/11/22Visit #: 4Student events intern Marguerite García assisted with the encounter. [...] more than active therapy. Overall everything feels OKPatient execution of the home plan: Fragmented - notes discontinuing HEP for the last 2 days while in an acute bout of pain after house choresDenies new traumas/illness, wishes to proceed with care pain- back and hip Follow up pat ientINITIAL DATE OF SERVICE: 12/11/2022Visit #: 3Student events intern Marguerite García assisted with the encounter. [...] INITIAL DATE OF SERVICE: 12/11/2022Visit #: 2Student events intern Marguerite García assisted with the encounter. Patient consented to student involvement. I attended the encounter and personally verified HPI, PE, treatment plan and treatment.Summary statement: Notes improvement in pain related complaints. 1 day soreness post first therapy but overall notes it was very helpful. No new issuesDiscussed XR with spondylosis and atherosclerosisPatient perception of therapy to date: HelpfulPatient execution of the home plan: As prescribedDenies trauma/illnesses, wishes to proceed with care pain - back INITIAL DATE OF SERVICE: 12/11/2022Visit #: 1 Student events intern Charbel Dunne assisted with the encounter. [...] on dental exam. Due for vision exam.Colonoscopy: 2018 - d/t repeat 2028Mammogram: Due ap smear: [...] and then it's really high in the morning.Denies polyuria/polydipsia, numbness/tingling in hands or feet. Checking [...] only work 2 days/week. I'm finding something else.DM: Last a1c: 6.5 10/2021 - Average FBS [...] feet/hands. Checking feet regularly.Last diabetic eye exam: [id number]: Denies chest pain, shortness of breath, dyspnea [...] Exam and f/u on dm/htn/hld. Working very [employer] 8 hrs/week at [employer]. She is currently looking for a new job. Lives Up to date on dental and vision exams - last vision exam 05/2021 at [facility] in [place], [place]. Colonoscopy: States she completed 3 years ago at [facility]. Mammogram: 12/2020 - repeat 12/2021 LDCT [...] into her left hip by ortho in [place], [place] in the past - first one [...] today driving over to the city from [place] and my blood pressure is never that high.HLD: no on statin. hypertension Comorbid conditi ons [...] or stress. The patient's relieving factors are [employer]. establish care Patient presents to establish care. [...] last 2 years.Patient had a colonoscopy in 2019-normal follow up in 10 years 2028Mammogram due- Functional Status Date Functional Assessmen t No Information Instructions Date Instruction Additional Infor leeann 9. Discussed appropr iate shoe gear for patient's foot type and to reduce rubbing on bunions - Continue wide width shoes daily with fabric, mesh or real leather uppers Related to Hallux valgus (acquired), left foot 1. Comprehensive his tory and physical examination2. Discussed assessment in detail with patient3. Comprehensive diabetic foot exam - reviewed risks of DM including but not limited to: neuropathy, PAD, infection, ulceration, foot deformity.4. Gave patient education about diabetic home foot care Related to Type 2 diabetes mellitus with hyperglycemia 5. Pairing of kerato derma/porokeratoma bilateral feet using a #15 blade without incident. Consent signed.6. Recommend patient use pumice stone on calluses after showering7. E-prescription for Amlactin 12 % cream to be applied to bottoms of feet daily; let dry before putting on socks - should slow callus re-growth8. RTC 3-6 months for f/u Related to Callus Prescribed activity/exercise edu cation Related to Body [...] Related to Low back pain, unspecified Continue amlodipine 10mgINCREASE losartan from 50mg to 100mg daily Related to Essential (primary) hypertension Continue rosuvastatin 10mg daily Related to Hyperlipidemia Schedule diabetic ey e examSchedule sleep studySchedule [...] to 10m g daily Related to Hyperlipidemia Follow up in 6-8 wee ks for diabetes/blood pressure Related to Encounter for gynecological examination (general) (routine) without abnormal findings Continue amlodipine 10mg dailyStart lisinopril 10mg daily Related to Essential (primary) hypertension Giving encouragement to exercise Related to Body mass index [BMI] 30.0-30.9, adult Continue baclofen as needed Rela maggi to Osteoarthritis Schedule pap smear a ppointmentSchedule WWE for 4 weeks Related to Encounter for adult annual physical exam w/ abnormal finding Start rosuvastatin 5mg Related t o Hyperlipidemia 30-60 minutes of exe rcise dailyStay away [...] than 140/90 Related to Essential (primary) hypertension a1c: 6.5! Continue w ith metformin 500mg twice daily Related to Type 2 diabetes mellitus with unspecified complications Initiate Immodium NC N at this time - contact clinic [...]
--- OUTSIDE RECORDS SUMMARY | 2024-12-06 08:41 | XMS_ITS | Clinical Summary ---
Author Organization [facility] Address [address] [place] [address] Care Team Providers Care Salt Plant Operator Name Role Phone Nai Oliver PA-C Primary Care Provider [phone] Source Comments [facility],non-[facility] Affiliates and Associated Physician Practices is amultiple site organization consisting of ambulatory clinics and hospital sitesin [place], [place], [place] and [place]. This disclosure is being madepursuant to the Care Everywhere program and may not contain all information available regarding this patient. Last updated 18.[facility] [employer] Social History Tobacco Use Types Packs/Day Years Used Date Smoking Tobacco: Every Day Cigarettes 1 34 Comments No Sex and Gender Information Value Date Recorded Sex Assigned at Not on file Legal Sex Female 9:32 AM CDT Gender Identity Not on file Sexual Orientation [...] FLEX SIG - COLON CA SCREENING 1960 HEPATITIS C SCREENING 04/10/1976 DTAP/TDAP/TD VACCINES (1 - Tdap) 1977 PNEUMOCOCCAL VACCINE 50+ (1 of 2 - PCV) 1977 ZOSTER VACCINE (1 of 2) 2008 LUNG CANCER SCREENING 12/26/2021 12/26/2020 COVID-19 VACCINE ( season) 2024 05/20/2021, 09/21/2020, 08/21/2020 MAMMOGRAM 05/07/2024 05/07/2022, 12/26/2020 DEPRESSION SCREENING 06/08/2024 INFLUENZA VACCINE (Season Ended) 2025 03/20/2022, 04/12/2019, 04/20/2014, Additional history exists LIPID TESTING 03/15/2026 03/15/2021, 12/06/2020 Respiratory Syncytial Virus (RSV) Vaccine Pt: or [...] patient's age to complete this topic MENINGOCOCCAL (Group B) VACCINE SHARED DECISION-MAKING Aged Out No longer eligible based on patient's age to complete this topic MENINGOCOCCAL GROUPS A/C/Y/W VACCINE Aged Out No longer eligible based on patient's age to complete this topic Procedures Procedure Name Priority Date/Time Associated Diagnosis Comments MAMMO BILAT SCREENING W HASEEB Routine 05/07/2022 10:23 AM INTERNET MARKETING COORDINATOR Encounter for screening mammogram for malignant neoplasm of breast CT LUNG SCREEN LOW DOSE Routine 12/26/2020 8:10 AM CDT Personal history of nicotine dependence from Last 3 Months or Most Recently Relevant to Health Maintenance Results * MAMMO BILAT SCREENING W HASEEB (05/07/2022 10:23 AM INTERNET MARKETING COORDINATOR) Anatomical Region Laterality Modality Breast Bilateral Mammography 05/07/2022 1:03 PM INTERNET MARKETING COORDINATOR Impressions 05/07/2022 1:05 PM INTERNET MARKETING COORDINATOR : There is no mammographic evidence of malignancy. OVERALL FINAL ASSESSMENT: BI-RADS Category 1: Negative. Annual screening mammography is recommended. > Interpreting Provider: Karoline Gerard MD on 05/07/2022 1:05 PM Narrative 05/07/2022 1:05 PM INTERNET MARKETING COORDINATOR EXAMINATION: BILATERAL DIGITAL SCREENING MAMMOGRAM AND BILATERAL BREAST TOMOSYNTHESIS HISTORY: Screening. COMPARISON: Serial examinations dating back to 2019. TECHNIQUE: BILATERAL digital breast tomosynthesis (DBT) and synthetic 2D digital mammogram images were obtained (bilateral craniocaudal and mediolateral oblique projections) including computer aided detection (CAD.) BREAST PARENCHYMAL COMPOSITION:Category C: The breasts are heterogeneously dense which may obscure small masses. MAMMOGRAM FINDINGS: There are no suspicious masses, calcifications, or areas of architectural distortion in either breast, and there has been no significant interval change. us Nai Oliver PA-C MAMMO ORDERABLES Final Res ult * CT LUNG SCREEN LOW DOSE (12/26/2020 8:10 AM CDT) Anatomical Region Laterality Modality Chest Computed Tomogra phy 12/26/2020 9:35 AM CDT Impressions 12/26/2020 9:37 AM CDT No pulmonary nodules. Lung RADS category 1, negative Continue annual screening with low-dose CT in 12 months. *Reading Radiologist: Yifan Brandt on 12/26/2020 at 9:37 AM Narrative 12/26/2020 9:[address] Lung Cancer Screening INDICATION: 34 pack [...] Yifan Brandt on 12/26/2020 at 9:37 AM [facility] StevensonAdrian HYDRAULIC AUTO JACK MECHANIC-REEFER TRUCK DRIVER CT ORDERABLES F inal Result from Last 3 Months or Most Recently Relevant to Health Maintenance Insurance AMBETTER Care Teams Salt Plant Operator Relationship Specialty Start Date End Date Nai Oliver PA-C [address] [place] [phone] PCP - General Physician Rn Community 05/07/22
[2024-12-06 09:07] LABS: Hematocrit 35.4 % (37.0-47.0); Hemoglobin 11.2 g/dL (12.0-15.0); Immature Granulocyte Percent A 0.0 % (0-0.5); Lymphocytes Absolute Auto 1.38 K/mm3 (0.9-3.2); Mean Corpuscular HGB Conc 31.6 g/dl (32-36); Mean Corpuscular Hemoglobin 27.8 pg (26-34); Mean Corpuscular Volume 87.8 fl (80-100); Nucleated Red Blood Cells Absolute Auto 0.000 K/mm3 (0.0-0.012); Nucleated Red Blood Cells Perc 0.0 % (0.0-0.2); Platelet Count Result 310 k/mm3 (150-375); Red Blood Count 4.03 M/mm3 (4.2-5.4); White Blood Count 4.2 K/mm3 (4.5-10.0)
[2024-12-06 10:08] LABS: Alanine Aminotransferase 19 U/L (6-35); Albumin Level 4.7 g/dL (3.5-5.1); Alkaline Phosphatase 53 U/L (38-126); Anion Gap 14 mmol/L (4-12); Aspartate Amino Transferase 28 U/L (14-36); Bilirubin,Total 0.4 mg/dL (0.2-1.3); Blood Urea Nitrogen 12 mg/dL (7-17); Calcium 10.3 mg/dL (8.4-10.2); Carbon Dioxide 21 mmol/L (22-30); Chloride 107 mmol/L (98-107); Cholesterol 152 mg/dL (0-200); Estimated Glomerular Filt Rate > 60; Glucose 125 mg/dL (65-110); HDL Direct 58 mg/dL; Potassium 4.3 mmol/L (3.4-5.0); Sodium 142 mmol/L (137-145); Total Protein 8.1 g/dL (6.3-8.2); Triglycerides 106 mg/dL (<150)
[2024-12-06 10:35] LABS: MALB Creatinine Ratio 14.6 mg/g (0-30)
[2024-12-06 10:41] LABS: Thyroid Stimulating Hormone 0.983 uIU/mL (0.465-4.680)
[2024-12-06 11:01] LABS: Vitamin B12. 701.0 pg/mL (239-931)
[2024-12-06 11:25] LABS: Hemoglobin A1C. 6.7 % (<5.7)
== END 2024-12-06 08:38 | disposition home or self-care (01) ==
PROVIDERS: PCP Internal Medicine; Visit Provider Internal Medicine
DX: E78.5 Hyperlipidemia, unspecified (principal); R53.83 Other fatigue; E11.9 Type 2 diabetes mellitus without complications; E53.8 Deficiency of other specified B group vitamins; I10 Essential (primary) hypertension
CPT/HCPCS: 36415; 80053; 80061; 82043; 82607; 83036; 84443; 85025

== ENCOUNTER 2025-05-12 07:47 | Outpatient (CLI) | payer MEDICARE, SELFPAY ==
--- NOTE | ~2025-05-12 | MM_ITS ---
EXAMINATION: MM screening yesica BI w channing HISTORY: Screening. TECHNIQUE: Craniocaudal and mediolateral oblique 3-D tomosynthesis images were obtained and synthetic 2-D images were generated. CAD analysis was submitted and interpreted. COMPARISON: 2023 BREAST PARENCHYMAL COMPOSITION: Dense: The breasts are heterogeneously dense FINDINGS: No suspicious masses are seen. There are no suspicious calcifications. No unexplained architectural distortion is seen. There are no skin or nipple abnormalities identified. There is no adenopathy seen on the images submitted. IMPRESSION: No mammographic evidence to suggest malignancy is seen. The patient may return to screening mammography as per ACR guidelines. BI-RADS 1 - Negative. Reviewed, dictated and finalized at location B. HER RENOVATOR
== END 2025-05-12 07:48 | disposition home or self-care (01) ==
LOC: ANHFOHIMG 07:49
PROVIDERS: PCP Internal Medicine; Visit Provider Internal Medicine
DX: Z12.31 Encounter for screening mammogram for malignant neoplasm of breast (principal)
CPT/HCPCS: 77063; 77067

== ENCOUNTER 2025-06-06 09:26 | Outpatient (CLI) | payer MEDICARE, SELFPAY ==
--- NOTE | ~2025-06-06 | XR_ITS ---
EXAMINATION: XR lumbar spine 2-3V DATE: 06/06/2025 09:44 INDICATION: Low back pain TECHNIQUE: Anteroposterior and lateral views of the lumbar spine, and cone-down lateral view of the lumbosacral junction were obtained. COMPARISON: None. FINDINGS: 9 degrees lumbar levocurvature. Sagittal alignment is normal. Vertebral body heights are normal. Mild disc height loss at L2-L3, L3-L4 and L4-L5. Mild to moderate upper and severe lower lumbar facet osteoarthritis. Mild osteoarthritis at the bilateral sacroiliac joints. Posterior sulci of the lungs are clear with no pleural effusion. Atherosclerotic aorta. IMPRESSION: 1. Mild lumbar spondylosis. Reviewed, dictated and finalized at location A. BASE REPORT WRITER IMPRESSION: 1. Mild lumbar spondylosis.
--- OUTSIDE RECORDS SUMMARY | 2025-06-06 09:42 | XMS_ITS | Clinical Summary ---
Author Organization [facility] Address [address] [place] [address] Care Team Providers Care Mine Safety Engineer Name Role Phone Nai Oliver PA-C Primary Care Provider [phone] Source Comments [facility],non-[facility] Affiliates and Associated Physician Practices is amultiple site organization consisting of ambulatory clinics and hospital sitesin [place], [place], [place] and [place]. This disclosure is being madepursuant to the Care Everywhere program and may not contain all information available regarding this patient. Last updated 18.[facility] [employer] Social History Tobacco Use Types Packs/Day Years [...] COLON CA SCREENING 1960 LIPID TESTING 1958 HEPATITIS C SCREENING 04/10/1976 DTAP/TDAP/TD VACCINES (1 - Tdap) 1977 PNEUMOCOCCAL VACCINE 50+ (1 of 2 - PCV) 1977 ZOSTER VACCINE (1 of 2) 2008 LUNG CANCER SCREENING 12/26/2021 12/26/2020 MAMMOGRAM 05/07/2024 05/07/2022, 12/26/2020 DEPRESSION SCREENING 06/08/2024 COVID-19 VACCINE ( season) 2025 05/20/2021, 09/21/2020, 08/21/2020 INFLUENZA VACCINE (#1) 2025 , 04/12/2019, 04/20/2014, Additional history exists Respiratory Syncytial Virus (RSV) Vaccine Pt: or [...] SCREENING W HASEEB Routine 05/07/2022 10:23 AM FX ARTIST Encounter for screening mammogram for malignant neoplasm of breast CT LUNG SCREEN LOW DOSE Routine 12/26/2020 8:10 AM CDT Personal history of nicotine dependence from Last 3 Months or Most Recently Relevant to Health Maintenance Results * MAMMO BILAT SCREENING W HASEEB (05/07/2022 10:23 AM FX ARTIST) Anatomical Region Laterality Modality Breast Bilateral Mammography 05/07/2022 1:03 PM FX ARTIST Impressions 05/07/2022 1:05 PM FX ARTIST : There is no mammographic evidence of malignancy. OVERALL FINAL ASSESSMENT: BI-RADS Category 1: Negative. Annual screening mammography is recommended. > Interpreting Provider: Karoline Gerard MD on 05/07/2022 1:05 PM Narrative 05/07/2022 1:05 PM FX ARTIST EXAMINATION: BILATERAL DIGITAL SCREENING MAMMOGRAM AND BILATERAL [...] interval change. Nai Oliver PA-C MAMMO ORDERABLES Final Res [...] Yifan Brandt on 12/26/2020 at 9:37 AM [facility] INSTRUMENT LENS GRINDER APPRENTICE-COMMERCIAL LOAN OFFICER CT ORDERABLES F inal Result from Last 3 Months or Most Recently Relevant to Health Maintenance Insurance AMBETTER Care Teams Mine Safety Engineer Relationship Specialty Start Date End Date Nai Oliver PA-C [address] [place] [address] PCP - General Physician Poultry Farmworker 05/07/22
--- OUTSIDE RECORDS SUMMARY | 2025-06-06 09:42 | XMS_ITS | Clinical Summary ---
Author Organization [facility] Address [address] [place] [id number] Care Team Providers Care Touch Up Painter Hand Name Role Phone Unavailable Primary Care Provider Unavailabl e Social History Tobacco Use Types Packs/Day Years Used Date Smoking Tobacco: Never Assessed Comments Unknown Sex and Gender Information Value Date Recorded Sex Assigned at Not on file Legal Sex Female 11:09 AM JAVA WEB APPLICATION DEVELOPER Gender Identity Not on file Sexual Orientation Not on file Plan of Treatment Health Maintenance Due Date Last Done Comments Hepatitis C Virus (HCV) Screening 1960 TdaP Immunization 1958 Cologuard 2003 Colonoscopy 2003 Colorectal Cancer Screening 2003 Immunochemical Fecal Occult Blood 2003 Pneumococcal Immunization (50+ years) (1 of 1 - PCV) 2008 Zoster Immunization (1 of 2) 2008 Influenza Immunization (#1) 02/06/202503/08, 04/12/2019, 04/24/2014, Additional history exists SARS-COV-2 Immunization ( season) 2025 Respiratory Syncytial Virus (RSV) Immunization (Adult) (1 - 1-dose 75+ series) 2033 Hepatitis B Immunization Aged Out No longer eligible based on patient's age to complete this topic Human Papillomavirus (HPV) Immunization Aged Out No longer eligible based on patient's age to complete this topic Meningococcal Immunization (ACWY) Aged Out No longer eligible based on patient's age to complete this topic Rotavirus Immunization Aged Out No lo nger eligible based on patient's age to complete this topic
[2025-06-06 10:05] LABS: Hematocrit 38.5 % (37.0-47.0); Hemoglobin 12.3 g/dL (12.0-15.0); Immature Granulocyte Percent A 0.2 % (0-0.5); Lymphocytes Absolute Auto 1.38 K/mm3 (0.9-3.2); Mean Corpuscular HGB Conc 31.9 g/dl (32-36); Mean Corpuscular Hemoglobin 28.4 pg (26-34); Mean Corpuscular Volume 88.9 fl (80-100); Nucleated Red Blood Cells Absolute Auto 0.000 K/mm3 (0.0-0.012); Nucleated Red Blood Cells Perc 0.0 % (0.0-0.2); Platelet Count Result 333 k/mm3 (150-375); Red Blood Count 4.33 M/mm3 (4.2-5.4); White Blood Count 4.0 K/mm3 (4.5-10.0)
[2025-06-06 11:10] LABS: Hemoglobin A1C 6.4 % (<5.7)
== END 2025-06-06 09:27 | disposition home or self-care (01) ==
PROVIDERS: PCP Internal Medicine; Visit Provider Internal Medicine
DX: M54.50 Low back pain, unspecified (principal); D64.9 Anemia, unspecified; G89.29 Other chronic pain; I10 Essential (primary) hypertension; E78.5 Hyperlipidemia, unspecified; E11.9 Type 2 diabetes mellitus without complications
CPT/HCPCS: 36415; 72100; 80053; 80061; 83036; 85025